=== PATIENT | male | born 1955 | race Caucasian/White ===

== ENCOUNTER 2017-06-28 09:51 | Emergency (ER) | payer OTHER ==
[~2017-06-28] VITALS: Ht 182.9 cm; Wt 98.9 kg
--- NOTE | 2017-06-28 10:42 | ED GI/GU/ABDOMINAL COMPLAINT ---
History of Present Illness General Chief Complaint: Abdominal Pain/Flank Pain Stated Complaint: UPPER RT ABD PAIN/CONSTIPATION Source: patient, old records Exam Limitations: no limitations Vital Signs & Intake/Output Vital Signs & Intake/Output Vital Signs Date Time Temp Pulse Resp B/P B/P Pulse O2 O2 Flow FiO2 Mean Ox Delivery Rate 06/28 1414 97.8 72 15 190/93 98 Room Air Room Air 06/28 1049 Room Air Room Air 06/28 1012 97.5 93 18 182/100 94 Room Air Allergies Coded Allergies: bee pollen (UNKNOWN 06/28/17) Reconcile Medications Escitalopram Oxalate 5 MG TABLET 1 TAB PO DAILY DEPRESSION (Reported) Insulin Glargine,Hum.rec.anlog (Toujeo Solostar) 300 UNIT/ML (1.5 ML) INSULN.PEN 60 UNITS QPM DIABETES (Reported) Insulin Lispro (Humalog) 100 UNIT/ML CARTRIDGE 4 UNITS QAM DIABETES (Reported ) Insulin Lispro (Humalog) 100 UNIT/ML CARTRIDGE 10 UNITS QEVENING DIABETES ( Reported) 10 UNITS WITH DINNER Linagliptin (Tradjenta) 5 MG TABLET 1 TAB PO DAILY DIABETES (Reported) Metformin HCl (Glucophage) 1,000 MG TABLET 1 TAB PO BID DIABETES (Reported) Triage Note: C/O CONSTIPATION X 3 WEEKS, R UPPER ABOMINAL PAIN RADIATING TO BACK X 1 WEEK, HAS BEEN TAKING COLACE AND MILK OF MAGNESIA WITH SOME RELIEF. LAST BM: 06/27. SAW XIOMARA AMES ON 06/23, TOLD TO COME TO ED FOR EVALATION. Triage Nurses Notes Reviewed? yes Onset: 3 weeks Duration: week(s):, continues in ED, waxing and waning Timing: recent history Quality/Severity: aching, mild, moderate Location: right lower quadrant, right upper quadrant Radiation: back Activities at Onset: rest Prior Abdominal Problems: none Past Sexual History: Unobtainable at this time No Modifying Factors: none Associated Symptoms: abdominal pain, loss of appetite, nausea/vomiting HPI: 3 weeks prior to admission patient complains of right-sided abdominal discomfort decreased appetite nausea difficulty with stool regularity and constipation. The pain is described as mild to moderate waxing and waning radiating to his back. He denies fever chills chest pain cough shortness of breath vomiting dysuria rash headache bleeding. Past History Travel History Traveled to [place] past 21 day No Medical History Any Pertinent Medical History? see below for history Neurological: NONE Cardiovascular: hypertension Gastrointestinal: NONE Renal: NONE Musculoskeletal: NONE Psychiatric: depression Endocrine: diabetes Surgical History Surgical History: non-contributory Psychosocial History Who do you live with Mother What is your primary language Spanish Tobacco Use: Never used ETOH Use: denies use Illicit Drug Use: cocaine Family History Hx Contributory? No Review of Systems Review of Systems Constitutional: Reports: see HPI, malaise. EENTM: Reports: no symptoms. Respiratory: Reports: no symptoms. Cardiovascular: Reports: no symptoms. GI: Reports: see HPI, abdominal pain, nausea. Genitourinary: Reports: no symptoms. Musculoskeletal: Reports: no symptoms. Skin: Reports: no symptoms. Neurological/Psychological: Reports: no symptoms. Hematologic/Endocrine: Reports: no symptoms. Immunologic/Allergic: Reports: no symptoms. All Other Systems: Reviewed and Negative Physical Exam Physical Exam General Appearance: well developed/nourished, alert, awake, anxious, mild distress, obese Head: atraumatic, normal appearance Eyes: Bilateral: normal appearance, PERRL, EOMI, normal inspection. Ears, Nose, Throat, Mouth: hearing grossly normal, moist mucous membrane Neck: normal inspection, supple, full range of motion, normal alignment Respiratory: normal breath sounds, chest non-tender, no respiratory distress, quiet respiration, lungs clear Cardiovascular: regular rate/rhythm, normal peripheral pulses, norml femoral pulses equa Peripheral Pulses: 4+ carotid (R), 4+ carotid (L) Gastrointestinal: normal bowel sounds, soft, non-tender, no organomegaly Male Genitals: normal genitalia Back: normal inspection, normal range of motion Extremities: normal range of motion, no ligament instability Neurologic/Psych: no motor/sensory deficits, awake, alert, oriented x 3, normal gait, normal mood/affect, talkback host II-XII nml as tested Skin: intact, normal color, warm/dry Core Measures ACS in differential dx? No Sepsis Present: No Sepsis Focused Exam Completed? No Progress Differential Diagnosis: appendicitis, biliary colic, cholecystitis, gastritis, pancreatitis Plan of Care: Orders Procedure Date/time Status URINE DRUG SCREEN FOR ER ONLY 06/28 1029 Complete URINALYSIS 06/28 1029 Complete TROPONIN LEVEL 06/28 1029 Complete LIPASE 06/28 1029 Complete LACTIC ACID 06/28 1029 Complete COMPREHENSIVE METABOLIC PANEL 06/28 1029 Complete CBC WITHOUT DIFFERENTIAL 06/28 1029 Complete EKG 06/28 1029 Active Laboratory Tests 06/28/17 1329: Lactic Acid Cancelled 06/28/17 1056: Urine Opiates Screen < 100, Methadone Screen < 40, Barbiturate Screen < 60, Ur Phencyclidine Scrn < 6.00, Amphetamines Screen < 100, U Benzodiazepines Scrn < 85, Urine Cocaine Screen > 1000 H, Urine Cannabis Screen 18.00, Urine Color STRAW, Urine Clarity CLEAR, Urine pH 6.0, Ur Specific [place] 1.015, Urine Protein NEG, Urine Ketones NEG, Urine Nitrite NEG, Urine Bilirubin NEG, Urine Urobilinogen 0.2, Ur Leukocyte Esterase NEG, Ur Microscopic EXAM NOT REQUIRED, Urine Hemoglobin NEG, Urine Glucose >=1000 H 06/28/17 1043: Anion Gap 13, Estimated GFR > 60, BUN/Creatinine Ratio 22.2, Glucose 341 H, Lactic Acid 1.6, Calcium 9.5, Total Bilirubin 0.6, AST 13 L, ALT 24, Alkaline Phosphatase 116, Troponin I < 0.01, Total Protein 7.4, Albumin 4.1, Globulin 3.3 , Albumin/Globulin Ratio 1.2, Lipase 109, CBC w Diff NO MAN DIFF REQ, RBC 5.05, MCV 87.4, MCH 29.3, MCHC 33.5, RDW 13.1, MPV 8.4, Gran % 74.4, Lymphocytes % 15.2 L, Monocytes % 8.7, Eosinophils % 1.4, Basophils % 0.3, Absolute Granulocytes 6.3, Absolute Lymphocytes 1.3, Absolute Monocytes 0.7 H, Absolute Eosinophils 0.1, Absolute Basophils 0 Diagnostic Imaging: Viewed by Me: CT Scan. Discussed w/RAD: CT Scan. Radiology Impression: No acute intra-abdominal or intrapelvic pathology is present. Initial ED EKG: normal axis, normal intervals, normal p-waves, normal QRS complex, normal sinus rhythm, LVH, no ST T wave changes Prior EKG: unchanged Rhythm Strip: normal sinus rhythm Departure Departure Time of Disposition: 1506 Disposition: HOME OR SELF CARE Condition: Stable Clinical Impression Primary Impression: Abdominal pain Qualifiers: Abdominal location: unspecified location Qualified Code: R10.9 - Unspecified abdominal pain Secondary Impressions: Cocaine abuse, Obstipation Referrals: Ancelmo PATTERSON,Rosas Jones (PCP/Family) Departure Forms: Customer Survey General Discharge Information Prescriptions: Current Visit Scripts Peg 3350/Na Sulf,Bicarb,Cl/KCl (Golytely Solution) 8 OZ PO SEE ADMIN CRITERIA #1 GAL 8 oz every 10 minutes until rectal effluent runs clear
[2017-06-28 10:52] LABS: ABSOLUTE BASOPHIL COUNT 0 /CUMM (0.0-0.2); ABSOLUTE EOSINOPHIL COUNT 0.1 /CUMM (0.0-0.7); ABSOLUTE GRANULOCYTE CT 6.3 /CUMM (1.4-6.5); ABSOLUTE LYMPH COUNT 1.3 /CUMM (1.2-3.4); ABSOLUTE MONOCYTE COUNT 0.7 /CUMM (0.10-0.60); BASOPHIL % 0.3 % (0.0-2.0); EOSINOPHIL % 1.4 % (0-5); GRANULOCYTE % 74.4 % (42.2-75.2); HEMATOCRIT 44.2 % (42-52); MEAN CORPUSCULAR HGB 29.3 PG (27.0-31.0); MEAN CORPUSCULAR HGB CONC 33.5 G/DL (33.0-37.0); MEAN CORPUSCULAR VOLUME 87.4 FL (80.0-94.0); MEAN PLATELET VOLUME 8.4 FL (7.4-10.4); PLATELET COUNT 262 /CUMM (130-400); RBC DISTRIBUTION WIDTH 13.1 % (11.5-14.5); RED BLOOD CELL CT 5.05 /CUMM (4.70-6.10); WHITE BLOOD CELL COUNT 8.5 /CUMM (4.8-10.8)
[2017-06-28] MEDS ORDERED: GLUCOPHAGE1000 M1 PO (11:00)
[2017-06-28] MEDS ORDERED: TRADJENTA5 M1 PO (11:01)
[2017-06-28] MEDS ORDERED: ESCITALOPRAM OXA5 MG PO (11:01)
[2017-06-28] MEDS ORDERED: HUMALOG100 UNIT/1 ×2 (11:02→11:04)
[2017-06-28] MEDS ORDERED: TOUJEO SOL300 UNIT/1 (11:05)
[2017-06-28 14:14] VITALS: BP 190/93
--- NOTE | 2017-06-28 14:37 | CT SCAN REPORT ---
EXAMINATION: CT ABDOMEN AND PELVIS WITH CONTRAST CLINICAL INFORMATION: Right upper quadrant pain, tenderness. COMPARISON: CT of the abdomen done on 03/03/2007. TECHNIQUE: Multidetector volumetric imaging was performed of the abdomen and pelvis following IV administration of 90 mL of Optiray 320 intravenous contrast. Sagittal and coronal reformatted images were obtained on the technologist's workstation. DLP: 465 mGy-cm FINDINGS: LUNG BASES: The visualized lung bases are unremarkable. LIVER, GALLBLADDER, AND BILIARY TREE: The liver is normal in size, shape, and attenuation. No focal hepatic lesion or biliary ductal dilatation is present. The gallbladder is unremarkable with no evidence of radiopaque gallstones, gallbladder wall thickening, or obvious pericholecystic inflammatory changes. PANCREAS: Unremarkable. SPLEEN: Unremarkable. ADRENAL GLANDS: Unremarkable. KIDNEYS AND URETERS: The kidneys are normal in size, shape, and attenuation. No hydronephrosis, hydroureter, or calculi seen. No perinephric stranding. BLADDER: Unremarkable. GASTROINTESTINAL TRACT: Significant fecal residual is noted throughout the entire large bowel. The appendix is not visualized. However, there are no inflammatory changes identified around the cecum or ileocecal region. The small-bowel loops are decompressed. Small sliding hiatal hernia is noted. ABDOMINAL WALL: No significant hernia is appreciated. LYMPH NODES: No pathologically enlarged lymphadenopathy identified within the retroperitoneal, pelvic, inguinal, groin region including the mesentery. VASCULAR: Significant atherosclerotic disease is noted within the aorta and its branches without aneurysm formation. PELVIC VISCERA: There is no pelvic mass present. The prostate is enlarged, lobulated, appeared to be protruding into the base of the urinary bladder, shows parenchymal calcification, measures 4.7 x 5.8 cm. OSSEOUS STRUCTURES: No suspicious lytic or sclerotic abnormality. IMPRESSION: No acute intra-abdominal or intrapelvic pathology is present. Please note that the appendix is not visualized, possibility of appendicitis, as you know, accordingly is not definitely excluded.
[2017-06-28] MEDS ORDERED: GOLYTELY SOLU4000 ML PO (15:10)
== END 2017-06-28 15:22 ==
LOC: ERH 09:51
PROVIDERS: Emergency Medicine
DX: F14.10 Cocaine abuse, uncomplicated (principal); K59.00 Constipation, unspecified
CPT/HCPCS: 74177; 80307; 81003; 93005; 93010; 96361; 96374; 96375; J0131; J1885; J2765